=== PATIENT | male | born 1985 | race Two or more races ===

== ENCOUNTER 2018-02-23 11:19 | Emergency (ER) | payer SELFPAY ==
[~2018-02-23] VITALS: Ht 167.6 cm; Wt 113.4 kg
[2018-02-23] MEDS ORDERED: NKM (11:27)
[2018-02-23 11:34] VITALS: BP 123/86
[2018-02-23] MEDS ORDERED: Ketorolac 30mg Inj IV ONE (11:45)
[2018-02-23 12:12] LABS: APPEARANCE,URINE CLEAR; BASOPHILS % (AUTO) 1.2 % (0.0-2.0); BILIRUBIN, URINE NEGATIVE (NEGATIVE); EOSINOPHILS % (AUTO) 0.2 % (0.0-3.0); GLUCOSE, URINE (UA) NEGATIVE (NEGATIVE); HEMATOCRIT 45.6 % (42.0-52.0); HEMOGLOBIN 15.5 G/DL (14.2-18.0); KETONES,URINE NEGATIVE (NEGATIVE); LEUKOCYTE ESTERASE ,URINE NEGATIVE (NEGATIVE); LYMPHOCYTES % (AUTO) 24.1 % (20.0-45.0); MEAN CORPUSCULAR VOLUME 95 FL (80-99); MONOCYTES % (AUTO) 9.6 % (1.0-10.0); NEUTROPHILS % (AUTO) 64.9 % (45.0-75.0); NITRITE,URINE NEGATIVE (NEGATIVE); PH,URINE 7 (4.5-8.0); PLATELET COUNT 199 K/UL (150-450); PROTEIN,URINE NEGATIVE (NEGATIVE); RED BLOOD COUNT 4.78 M/UL (4.70-6.10); RED CELL DISTRIBUTION WIDTH 12.7 % (11.6-14.8); UROBILINOGEN,URINE NORMAL MG/DL (0.0-1.0)
[2018-02-23 12:15] LABS: COLOR,URINE YELLOW
[2018-02-23 12:21] LABS: ANION GAP 9 mmol/L (5-15); BLOOD UREA NITROGEN 5 mg/dL (7-18); CALCIUM 7.6 MG/DL (8.5-10.1); CARBON DIOXIDE 28 MMOL/L (21-32); CHLORIDE 98 MMOL/L (98-107); CREATININE 0.7 MG/DL (0.55-1.30); POTASSIUM 3.2 MMOL/L (3.5-5.1); SODIUM 135 MMOL/L (136-145)
[2018-02-23 12:30] LABS: ALANINE AMINOTRANSFERASE 178 U/L (12-78); ALBUMIN 2.9 G/DL (3.4-5.0); ALBUMIN/GLOBULIN RATIO 0.7 (1.0-2.7); ALKALINE PHOSPHATASE 222 U/L (46-116); ASPARTATE AMINO TRANSFERASE 315 U/L (15-37); BILIRUBIN,TOTAL 2.9 MG/DL (0.2-1.0); CREATINE KINASE 595 U/L (26-308)
[2018-02-23] MEDS ORDERED: Isovue-300 100ml vial INJ PRN (12:45)
--- NOTE | 2018-02-23 14:06 | Emergency Room Report ---
History of Present Illness General Chief Complaint: Generalized Weakness Source: Patient Present Illness HPI 32-year-old male presents ED for evaluation. Patient states he feels very weak. States his hands and feet feel numb. Started today. States he's never felt this way before. Denies alcohol or drug use. Denies fevers or chills. Denies chest pain or shortness of breath. Complaining of some mild abdominal pain. 6 out of 10, dull, nonradiating. No other aggravating relieving factors. Denies any other associated symptoms Allergies: Coded Allergies: No Known Allergies (Unverified , 02/23/18) Patient History Past Medical History: none Past Surgical History: none Pertinent Family History: none Social History: Denies: smoking, alcohol use, drug use Reviewed Nursing Documentation: PMH: Agreed; PSxH: Agreed Nursing Documentation-PMH Past Medical History: No Stated History Review of Systems All Other Systems: negative except mentioned in HPI Physical Exam Vital Signs Date Time Temp Pulse Resp B/P (MAP) Pulse Ox O2 Delivery O2 Flow Rate FiO2 02/23/18 11:21 97.8 100 20 123/86 94 Room Air 97.9 Sp02 EP Interpretation: reviewed, normal General Appearance: no apparent distress, alert, GCS 15, non-toxic, obese Head: normocephalic, atraumatic Eyes: bilateral eye normal inspection, bilateral eye PERRL ENT: hearing grossly normal, normal pharynx, no angioedema, normal voice Neck: full range of motion, supple/symm/no masses Respiratory: chest non-tender, lungs clear, normal breath sounds, speaking full sentences Cardiovascular #1: regular rate, rhythm, no edema Cardiovascular #2: 2+ carotid (R), 2+ carotid (L), 2+ radial (R), 2+ radial (L) , 2+ dorsalis pedis (R), 2+ dorsalis pedis (L) Gastrointestinal: normal bowel sounds, non tender, soft, non-distended, no guarding, no rebound Rectal: deferred Genitourinary: normal inspection, no CVA tenderness Musculoskeletal: back normal, gait/station normal, normal range of motion, non- tender Neurologic: alert, oriented x3, responsive, director of cardiology service line III-XII nml as tested, motor strength/tone normal, sensory intact, cerebellar normal, normal gait, speech normal Psychiatric: judgement/insight normal, memory normal, mood/affect normal, no suicidal/homicidal ideation Reflexes: 3+ bicep (R), 3+ bicep (L), 3+ tricep (R), 3+ tricep (L), 3+ knee (R) , 3+ knee (L) Skin: normal color, no rash, warm/dry, well hydrated Lymphatic: no adenopathy Medical Decision Making Diagnostic Impression: Primary Impression: Episode of generalized weakness Additional Impressions: Alcohol intoxication Qualified Codes: F10.929 - Alcohol use, unspecified with intoxication, unspecified Elevated LFTs ER Course Hospital Course 32 yo M presents with weakness, noting weakness/cramping in his arms and legs Differential diagnosis includes- dehydration, rhabdo, neuropathy Clinical course Patient placed on stretcher. After initial history and physical I ordered labs , IV fluids, toradol, gabapentin Labs - no leukocytosis, electrolytes ok, LFTs markedly elevated, ETOH elevated Patient noting some right lower abdominal pain. CT ordered CT scan shows fatty liver, no acute pathology Discussed findings with the patient. Patient is safe for discharge. Recommend the patient needs to cut down on his drinking. Close follow-up with PMD I feel this is a highly complex case requiring extensive working including EKG/ Rhythm strip, Xray/CT/US, Blood/urine lab work, repeat exams while in ED, and administration of strong opiates/narcotics for pain control, admission to hospital or close patient follow up. Diagnosis - episode of generalized weakness, ETOH intoixation,elevated LFTS Stable and discharged to home. Followup with PMD. Return to ED if symptoms recur or worsen Labs Test 02/23/18 11:50 White Blood Count 8.0 K/UL (4.8-10.8) Red Blood Count 4.78 M/UL (4.70-6.10) Hemoglobin 15.5 G/DL (14.2-18.0) Hematocrit 45.6 % (42.0-52.0) Mean Corpuscular Volume 95 FL (80-99) Mean Corpuscular Hemoglobin 32.5 PG (27.0-31.0) Mean Corpuscular Hemoglobin Concent 34.1 G/DL (32.0-36.0) Red Cell Distribution Width 12.7 % (11.6-14.8) Platelet Count 199 K/UL (150-450) Mean Platelet Volume 6.5 FL (6.5-10.1) Neutrophils (%) (Auto) 64.9 % (45.0-75.0) Lymphocytes (%) (Auto) 24.1 % (20.0-45.0) Monocytes (%) (Auto) 9.6 % (1.0-10.0) Eosinophils (%) (Auto) 0.2 % (0.0-3.0) Basophils (%) (Auto) 1.2 % (0.0-2.0) Urine Color Yellow Urine Appearance Clear Urine pH 7 (4.5-8.0) Urine Specific [place] 1.005 (1.005-1.035) Urine Protein Negative (NEGATIVE) Urine Glucose (UA) Negative (NEGATIVE) Urine Ketones Negative (NEGATIVE) Urine Occult Blood Negative (NEGATIVE) Urine Nitrite Negative (NEGATIVE) Urine Bilirubin Negative (NEGATIVE) Urine Urobilinogen Normal MG/DL (0.0-1.0) Urine Leukocyte Esterase Negative (NEGATIVE) Sodium Level 135 MMOL/L (136-145) Potassium Level 3.2 MMOL/L (3.5-5.1) Chloride Level 98 MMOL/L (98-107) Carbon Dioxide Level 28 MMOL/L (21-32) Anion Gap 9 mmol/L (5-15) Blood Urea Nitrogen 5 mg/dL (7-18) Creatinine 0.7 MG/DL (0.55-1.30) Estimat Glomerular Filtration Rate > 60 mL/min (>60) Glucose Level 127 MG/DL (74-106) Calcium Level 7.6 MG/DL (8.5-10.1) Magnesium Level 2.0 MG/DL (1.8-2.4) Total Bilirubin 2.9 MG/DL (0.2-1.0) Direct Bilirubin 2.0 MG/DL (0.0-0.3) Aspartate Amino Transf (AST/SGOT) 315 U/L (15-37) Alanine Aminotransferase (ALT/SGPT) 178 U/L (12-78) Alkaline Phosphatase 222 U/L (46-116) Total Creatine Kinase 595 U/L (26-308) Total Protein 7.1 G/DL (6.4-8.2) Albumin 2.9 G/DL (3.4-5.0) Globulin 4.2 g/dL Albumin/Globulin Ratio 0.7 (1.0-2.7) Urine Opiates Screen Negative (NEGATIVE) Urine Barbiturates Screen Negative (NEGATIVE) Phencyclidine (PCP) Screen Negative (NEGATIVE) Urine Amphetamines Screen Negative (NEGATIVE) Urine Benzodiazepines Screen Negative (NEGATIVE) Urine Cocaine Screen Negative (NEGATIVE) Urine Marijuana (THC) Screen Negative (NEGATIVE) Serum Alcohol 313 mg/dL CT/MRI/US Diagnostic Results CT/MRI/US Diagnostic Results : Imaging Test Ordered: CT A/P Impression fatty liver, no acute findings Last Vital Signs Date Time Temp Pulse Resp B/P (MAP) Pulse Ox O2 Delivery O2 Flow Rate FiO2 02/23/18 13:15 97.9 02/23/18 11:34 20 123/86 94 Room Air 02/23/18 11:21 100 Status: improved Disposition: HOME, SELF-CARE Condition: Stable Referrals: NOT CHOSEN IPA/,REFERRING (PCP) Cristobal Heard MD Feb 23, 2018 14:06
--- NOTE | 2018-02-23 14:32 | Diagnostic Imaging Report ---
Clinical Indication: Abdominal pain Technique: No oral contrast utilized, per emergency room physician request IV administration nonionic contrast. Venous phase spiral acquisition obtained through the abdomen and pelvis. Multiplanar reconstructions were generated. Total dose length product 1190.08 mGycm. CTDIvol(s) 19.28 mGy. Dose reduction achieved using automated exposure control Comparison: none Findings: Lack of enteric contrast limits assessment of the GI tract. Normal appendix. There are questionable small colonic diverticula. No evidence of diverticulitis. No small bowel distention. No free or loculated intraperitoneal air or fluid is evident. Distal esophagus, stomach, duodenum are unremarkable. Liver is diffusely hypoattenuating, consistent with fatty change. No focal abnormality. Gallbladder, bile ducts, pancreas, spleen, adrenals, kidneys are all unremarkable. No pelvic mass or adenopathy. No retroperitoneal or mesenteric mass or adenopathy. The bladder is considerably distended. There is bilateral L5 spondylolysis and grade 1 L5 on S1 spondylolisthesis, associated secondary degenerative changes of the lumbosacral junction. The bones are otherwise unremarkable. The included lung bases are clear. Impression: Limited assessment of the GI tract, due to lack of enteric contrast administration No definite acute abnormality Fatty liver Possible colonic diverticulosis Bilateral L5 spondylolysis, grade 1 L5 on S1 spondylolisthesis, secondary degenerative changes of the lumbosacral junction The CT scanner at [facility] is accredited by the [employer] and the scans are performed using protocols designed to limit radiation exposure to as low as reasonably achievable to attain images of sufficient resolution adequate for diagnostic evaluation.
[2018-02-23 14:50] VITALS: BP 129/80
== END 2018-02-23 14:50 | disposition home or self-care (01) ==
LOC: EMR 12:27
DX: R53.1 Weakness (principal); F10.129 Alcohol abuse with intoxication, unspecified; R79.89 Other specified abnormal findings of blood chemistry; K76.0 Fatty (change of) liver, not elsewhere classified
CPT/HCPCS: 36415; 74177; 80053; 80307; 81003; 82248; 82550; 83735; 85025; 96361; 96374; 99284; G0480; J1885; Q9967; 80329; 96365